=== PATIENT | female | born 1935 | race Caucasian/White ===

== ENCOUNTER 2019-07-06 11:35 | Emergency (ER) | payer OTHER, MEDICARE ==
[2019-07-06 11:41] VITALS: BP 135/82; PULSE 95; TEMP 98; BMI 27.7
[2019-07-06] MEDS ORDERED: SODIUM CHLORIDE 0.9% 500 ML INFUS.BAG IV ONE (12:08)
--- NOTE | 2019-07-06 12:23 | PDOC ---
History of Present Illness - General Chief Complaint: Lightheaded Stated Complaint: SENT BY PCP Time Seen by Provider: 07/06/19 11:51 - History of Present Illness Initial Comments: The pt is an 84F w/ a history of HTN and hypothyroidism who presents for 1 week of intermittent dizziness and 'head heaviness'. The symptoms are not positional , are not associated with time, activity, or any other things she can identify. She has not taken her medications in 3 years but has never had these symptoms before. She denies fevers/chills, GUERRA, vision changes, chest pain, trouble breathing, abdominal pain, N/V/C/D, dysuria, hematuria, or changes in sensation. Denies falls. 07/06/19 12:09 Past History - Past Medical History Allergies/Adverse Reactions: Allergies Allergy/AdvReac Type Severity Reaction Status Date / Time Sulfa (Sulfonamide Allergy Verified 07/06/19 11:41 Antibiotics) COPD: No HTN: Yes Seizures: Yes Other medical history: macular degeneration - Suicide/Smoking/Psychosocial Hx Smoking History: Current every day smoker Number of Cigarettes Smoked Daily: 15 Information on smoking cessation initiated: No Review of Systems - Review of Systems Able to Perform ROS?: Yes Comments:: GENERAL/CONSTITUTIONAL: No fever or chills HEAD, EYES, EARS, NOSE AND THROAT: No change in vision. No change in hearing. No sore throat CARDIOVASCULAR: No shortness of breath RESPIRATORY: Denies cough, hemoptysis GASTROINTESTINAL: No nausea, vomiting, diarrhea or constipation GENITOURINARY: No dysuria, frequency, or change in urination MUSCULOSKELETAL: No joint or muscle swelling or pain. No neck or back pain SKIN: No rash NEUROLOGIC: No headache, vertigo, loss of consciousness, or change in strength/ sensation ENDOCRINE: No increased thirst. No abnormal weight change HEMATOLOGIC/LYMPHATIC: No anemia, easy bleeding, or history of blood clots ALLERGIC/IMMUNOLOGIC: No hives or skin allergy 07/06/19 15:52 Is the patient limited Arabic proficient: No *Physical Exam - Vital Signs Last Vital Signs Temp Pulse Resp BP Pulse Ox 98 F 95 H 18 135/82 07/06/19 11:37 07/06/19 11:37 07/06/19 11:37 07/06/19 11:37 - Physical Exam Comments: GENERAL: Awake, alert, and oriented to person/place/time, in no acute distress HEAD: No signs of trauma, normocephalic, atraumatic EYES: PERRLA, EOMI, sclera anicteric, conjunctiva clear ENT: Hearing grossly normal, nares patent, oropharynx clear without exudates. No uvular deviation. Moist mucosa LUNGS: No distress, speaks in full sentences, clear to auscultation bilaterally HEART: Regular rate and rhythm, normal S1 and S2, no murmurs appreciated, peripheral pulses normal and equal bilaterally ABDOMEN: Soft, nontender, normoactive bowel sounds. No guarding, no rebound. No masses EXTREMITIES: Normal inspection, Normal range of motion, no edema. No clubbing or cyanosis NEUROLOGICAL: Cranial nerves II through XII grossly intact. Normal speech, normal gait, no focal sensorimotor deficits SKIN: Warm, Dry 07/06/19 15:52 ED Treatment Course - LABORATORY CBC & Chemistry Diagram: 07/06/19 12:30 07/06/19 12:30 - RADIOLOGY Radiology Studies Ordered: Category Date Time Status CHEST X-RAY PORTABLE* [RAD] Stat Radiology 07/06/19 12:08 Ordered Medical Decision Making - Medical Decision Making The pt is an 84F w/ a history of HTN and hypothyroidism who presents for evaluation of 1.5 weeks of dizziness and head heaviness ED Course Labs sent ECG w/ NSR; HR 79; QTc 451; no evidence of MIKE; L axis deviation CXR w/o acute pathology WBC 30.6 w/ 79.7% lymphocytes -Suspicious for CLL -Discussed with Dr. Hidalgo and Dr. Teixeira -Pt to call both offices tomorrow for follow up Lytes unremarkable LFTs unremarkable Trop I neg TSH elevated, consistent w/ synthroid non-compliance -Free T4 wnl -Subclinical hypothyroidism 07/06/19 15:07 Results and need for follow up discussed with pt -Pt and son verbalized understanding 07/06/19 15:52 Repeat trop I neg Plan for D/C w/ PCP and Onc f/u Discharge instructions and return precautions given Pt in agreement and verbalized understanding Dispo: home 07/06/19 16:32 *DC/Admit/Observation/Transfer Diagnosis at time of Disposition: Dizziness Leukocytosis Qualifiers: Leukocytosis type: lymphocytosis Qualified Code(s): D72.820 - Lymphocytosis ( symptomatic) - Discharge Dispostion Condition at time of disposition: Stable Decision to Admit order: No - Referrals Referrals: Christopher Teixeira MD [Staff Physician] - Rj Hidalgo MD [Primary Care Provider] - - Patient Instructions Printed Discharge Instructions: DI for Leukocytosis Additional Instructions: You were seen in the Emergency Department for evaluation of dizziness. You were found to have an elevated white blood cell count and an elevated Thyroid Stimulating Hormone level. The thyroid hormone is likely elevated due to your hypothyroidism and not taking Synthroid (Levothyroxin). Your elevated white blood cell count need to be further worked up. It is very important that you call both Dr. Hidalgo and Dr. Teixeira tomorrow. Return to the Emergency Department if you develop fevers/chills, chest pain, trouble breathing, abdominal pain, nausea/vomiting, worsening symptoms, or any new/concerning symptoms. - Post Discharge Activity
[2019-07-06 12:39] LABS: BASO % 0.2 % (0-2.0); EOS % 0.2 % (0-4.5); HEMATOCRIT 37.9 % (32.4-45.2); HEMOGLOBIN 12.6 GM/dL (10.7-15.3); LYMPH % 79.7 % (8-40); MCH 32.5 pg (25.7-33.7); MCHC 33.2 g/dl (32.0-36.0); MEAN CELL VOLUME 97.8 fl (80-96); MEAN PLT VOLUME 8.1 fl (7.5-11.1); MONO % 2.7 % (3.8-10.2); NEUT % 17.2 % (42.8-82.8); PLATELET COUNT 230 K/MM3 (134-434); RBC 3.87 M/mm3 (3.60-5.2); RDW 13.8 % (11.6-15.6)
[2019-07-06 12:44] LABS: WHITE BLOOD COUNT 30.6 K/mm3 (4.0-10.0)
[2019-07-06 13:09] LABS: ALBUMIN 4.2 g/dl (3.4-5.0); ALK PHOS 72 U/L (45-117); ANION GAP 5 MMOL/L (8-16); BILIRUBIN,TOTAL 0.5 mg/dL (0.2-1); BLOOD UREA NITROGEN 21.1 mg/dL (7-18); CALCIUM 9.4 mg/dL (8.5-10.1); CHLORIDE 108 mmol/L (98-107); CO2 28 mmol/L (21-32); CREATININE 1.1 mg/dL (0.55-1.3); GLUCOSE,RANDOM 108 mg/dL (74-106); POTASSIUM 4.2 mmol/L (3.5-5.1); SGOT/AST 14 U/L (15-37); SGPT/ALT 20 U/L (13-61); SODIUM 141 mmol/L (136-145); TOT PROT 7.3 g/dl (6.4-8.2)
--- NOTE | 2019-07-06 13:18 | PDOC ---
Documentation entered by Laquita Hernandez SCRIBE, acting as scribe for Ene Spear DO. Ene Spear DO: This documentation has been prepared by the Mary hester Brenda, SCRIBE, under my direction and personally reviewed by me in its entirety. I confirm that the documentation accurately reflects all work, treatment, procedures, and medical decision making performed by me. Attending Attestation - Resident Resident Name: Fito Peña - ED Attending Attestation I have performed the following: I have examined & evaluated the patient, The case was reviewed & discussed with the resident, I agree w/resident's findings & plan, Exceptions are as noted - HPI HPI: 07/06/19 12:46 The patient is an 84 year old female, with a significant PMH of HTN. Hypothyroidism and seizures, who presents to the emergency department, sent by PCP, who she has not seen in 3 years, for 1 week of intermittent dizziness and lightheadedness, which she describes as random flushes that hit her. She notes no aggravating factors. Patient also states not being on any of her prescribed medications for the past 3 years. The patient denies chest pain, shortness of breath. Denies fever, chills, nausea , vomiting, diarrhea and constipation. Denies any urinary symptoms. Allergies: Sulfonamide antibiotics Past surgical history: None reported Social history: Current everyday smoker. PCP: Rj Ingram - Physicial Exam PE: 07/06/19 12:46 GENERAL: Awake, alert, and fully oriented, in no acute distress HEAD: No signs of trauma EYES: EOMI, sclera anicteric, conjunctiva clear NECK: Normal ROM, supple, no lymphadenopathy, JVD, or masses LUNGS: Breath sounds equal, clear to auscultation bilaterally. No wheezes, and no crackles HEART: Regular rate and rhythm, normal S1 and S2, no murmurs, rubs or gallops ABDOMEN: Soft, nontender, normoactive bowel sounds. No guarding, no rebound. No masses EXTREMITIES: Normal range of motion, no edema. No clubbing or cyanosis. No cords, erythema, or tenderness NEUROLOGICAL: Cranial nerves II through XII grossly intact. Normal speech, normal gait, ambulatory. No focal deficits. SKIN: Warm, Dry, normal turgor, no rashes or lesions noted. - Medical Decision Making 07/06/19 13:09 I, Dr. Ene Spear, DO, attest that this document has been prepared under my direction and personally reviewed by me in its entirety. I further attest, that it accurately reflects all work, treatment, procedures and medical decision -making performed by me. 07/06/19 13:09 a/p: 84yo well appearing female with lightheaded x 1 week -no cp/sob -has felt palpitations -symptoms intermittently - occurs with standing and also with when standing for long periods of time -no abd pain, no n/v/d -no dysuria -no wt loss, no night sweats -hx of htn and hypothyroid - was on atenolol and synthroid 50mcg 3 years ago -no mercedes -neuro intact -will send labs, ekg, cxr 07/06/19 13:16 wbc 30 - resident discussed the case with dr. cullen who states last wbc did show uptrending wbc concern for cll at the time, recommended dr. kahlil ivan at the time, but pt did not go pt without overt lymphadenopathy on exam physically -call placed to dr. teixeira 07/06/19 13:[address] Teixeira - agrees that case might be cll recommends follow up in the office - recommends calling tomorrow for appt 07/06/19 13:38 trop neg elevated tsh, pending free t4 will need repeat trop 07/06/19 14:17 free t4 normal 07/06/19 15:35 resident discussed lab findings with the patient and her son pending repeat trop 07/06/19 16:10 repeat trop negative pt stable for dc to home ua pending, will add call in note for follow up pt anxious to go home understands need for follow up with PMD and with Dr. Teixeira Heart Score/ECG Review - ECG Intrepretation Comment:: 07/06/19 13:18 sinus at 79, l axis, nl interval, low voltage, nl interval, q waves anterolateral, poor r wave progression, no acute st/t wave findings
[2019-07-06 16:18] LABS: EPI CELLS 0.6 /HPF (0-5/HPF); HYALINE CASTS 0 /lpf (0-8); PH,URINE 5.5 (5.0-8.0); URINE APPEARANCE CLEAR; URINE BACTERIA 7.1 /hpf (NEGATIVE); URINE BILIRUBIN NEGATIVE (NEGATIVE); URINE COLOR YELLOW; URINE GLUCOSE (UA) NEGATIVE (NEGATIVE); URINE KETONE NEGATIVE (NEGATIVE); URINE LEUK ESTERASE NEGATIVE (NEGATIVE); URINE NITRITE NEGATIVE (NEGATIVE); URINE PROTEIN NEGATIVE (NEGATIVE); URINE RBC 4 /hpf (0-4); URINE UROBILINOGEN 0.2 mg/dL (0.2-1.0); URINE WBC 1 /hpf (0-5)
[2019-07-06 17:00] LABS: ANISOCYTOSIS 0; MACROCYTOSIS 0; PLATELET ESTIMATE NORMAL
--- NOTE | 2019-07-07 09:50 | EKG ---
Test Reason : Blood Pressure : / mmHG Vent. Rate : 079 BPM Atrial Rate : 079 BPM P-R Int : 160 ms QRS Dur : 086 ms QT Int : 394 ms P-R-T Axes : 029 -41 011 degrees QTc Int : 451 ms NORMAL SINUS RHYTHM LEFT AXIS DEVIATION LOW VOLTAGE QRS POSSIBLE ANTEROLATERAL INFARCT (CITED ON OR BEFORE 14-MAY-2001) ABNORMAL ECG WHEN COMPARED WITH ECG OF 09-MAY-2008 13:57, NONSPECIFIC T WAVE ABNORMALITY NOW EVIDENT IN LATERAL LEADS Confirmed by BRANT ORANTES, AUSTIN ([id number]) on 07/07/2019 9:49:48 AM Referred By: Confirmed By:AUSTIN GUO MD
== END 2019-07-06 16:43 | disposition home or self-care (01) ==
LOC: JER 11:35
PROC: 3E0337Z Introduction of Electrolytic and Water Balance Substance into Peripheral Vein, Percutaneous Approach (ICD-10-PCS; principal; 2019-07-06)
DX: D72.820 Lymphocytosis (symptomatic) (principal); I10 Essential (primary) hypertension; E03.9 Hypothyroidism, unspecified; R56.9 Unspecified convulsions; F17.210 Nicotine dependence, cigarettes, uncomplicated
CPT/HCPCS: 36415; 71045-TC-FY; 80053; 81003; 84439; 84443; 84484; 85025; 87086; 93005; 93010; 96360; 99283-25